=== PATIENT | male | born 1985 | race Caucasian/White ===

== ENCOUNTER 2020-03-22 13:27 | Emergency (ER) | payer OTHER ==
--- NOTE | 2020-03-22 13:39 | PDOC ---
Rapid Medical Evaluation Chief Complaint: Back Pain Time Seen by Provider: 03/22/20 13:37 Medical Evaluation: 03/22/20 13:37 I have performed a brief in-person examination on this patient. CC: acute on chronic back pain shooting down right leg. Denies red flag symptoms. PE: No focal findings. Orders: Toradol Patient will proceed to ED for further evaluation. Discharge Disposition - Diagnosis Back pain - Referrals - Patient Instructions - Post Discharge Activity
[2020-03-22 13:41] VITALS: BP 128/79; PULSE 71; TEMP 98.4; BMI 25.5
[2020-03-22] MEDS ORDERED: LIDOCAINE 5% TOPICAL PATCH TP ONE (14:10)
[2020-03-22] MEDS ORDERED: KETOROLAC TROMETHAMINE 30 MG/1 ML VIAL IM ONE (14:10)
[2020-03-22] MEDS ORDERED: METHOCARBAMOL 500 MG TABLET PO ONE (14:10)
--- NOTE | 2020-03-22 14:22 | PDOC ---
History of Present Illness - General Chief Complaint: Back Pain Stated Complaint: BACK PAIN Time Seen by Provider: 03/22/20 13:37 History Source: Patient Exam Limitations: Clinical Condition - History of Present Illness Initial Comments: 03/22/20 14:18 Patient with past medical history of chronic low back pain being managed by [id number] pain meds for a few years now present with complaint of worsening right lower back pain and left lower back pain for the past week. 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 Patient reported intermittent pain radiating to back of back leg. Denies saddle paresthesia, urinary or fecal incontinence. Denies urinary frequency, dysuria or burning urination. Patient has not taken anything today for symptoms. Denies any other symptoms Occurred: reports: last week Severity: reports: moderate Pain Location: reports: back Past History - Medical History Allergies/Adverse Reactions: Allergies Allergy/AdvReac Type Severity Reaction Status Date / Time No Known Allergies Allergy Verified 03/22/20 13:40 Home Medications: Ambulatory Orders Lidocaine 5% Patch [Lidoderm -] 1 patch TP DAILY #30 patch 03/22/20 Methocarbamol [Robaxin -] 500 mg PO BID PRN #14 tablet 03/22/20 Methylprednisolone [Medrol Dose Faisal] 4 mg PO ASDIR #21 tablet 03/22/20 - Psycho-Social/Smoking History Smoking History: Never smoked Have you smoked in the past 12 months: No Information on smoking cessation initiated: No - Substance Abuse Hx (Audit-C & DAST Scrn) How often the patient has a drink containing alcohol: Never Score: In Men: 4 or > Positive; In Women: 3 or > Positive: 0 Screen Result (Pos requires Nsg. Audit-10AR): Negative In the last yr the pt used illegal drug/Rx for NonMed reason: No Score: Yes response is considered Positive: 0 Screen Result (Positive result requires Nsg. DAST-10): Negative Review of Systems - Review of Systems Able to Perform ROS?: Yes Is the patient limited Lao proficient: No Constitutional: No: Chills, Fever, Malaise HEENTM: No: Symptoms Reported, See HPI, Eye Pain, Blurred Vision, Tearing, Recent change in vision, Double Vision, Cataracts, Ear Pain, Ocular Prothesis, Ear Discharge, Nose Pain, Nose Congestion, Tinnitus, Nose Bleeding, Hearing Loss, Throat Pain, Throat Swelling, Mouth Pain, Dental Problems, Difficulty Swallowing, Mouth Swelling, Other Respiratory: No: Symptoms reported, See HPI, Cough, Orthopnea, Shortness of Breath, SOB with Exertion, SOB at Rest, Stridor, Wheezing, Productive cough, Hemoptysis, Other Cardiac (ROS): No: Symptoms Reported, See HPI, Chest Pain, Edema, Irregular Heart Rate, Lightheadedness, Palpitations, Syncope, Chest Tightness, Other ABD/GI: No: Symptoms Reported, Nausea, Vomiting : No: Symptoms Reported, Burning, Frequency, Pain, Urgency, Testicular Mass, Testicular Swelling, Testicular Pain, Other Musculoskeletal: Yes: Symptoms Reported, See HPI, Back Pain Integumentary: No: Symptoms Reported Neurological: No: Symptoms reported, Headache, Dizziness All Other Systems: Reviewed and Negative *Physical Exam - Vital Signs Last Vital Signs Temp Pulse Resp BP Pulse Ox 98.4 F 71 15 128/79 97 03/22/20 13:37 03/22/20 13:37 03/22/20 13:37 03/22/20 13:37 03/22/20 13:37 - Physical Exam 03/22/20 14:22 GENERAL: Well developed, well nourished. Awake and alert. No acute distress. CARDIOVASCULAR: Regular rate and rhythm. No murmurs, rubs, or gallops. PULMONARY: No evidence of respiratory distress. Lungs clear to auscultation bilaterally. No wheezing, rales or rhonchi. ABDOMINAL: Soft. Non-tender. Non-distended. No rebound or guarding. No organomegaly. Normoactive bowel sounds MUSCULOSKELETAL : mild tenderness to right paravertebral muscle of lumbosacral spine of L4-S1. No midline tenderness. Increased pain to right lower back with rotation of the hip to the left. Negative straight leg test. SKIN: Warm and dry. Normal capillary refill. No rashes. No jaundice. NEUROLOGICAL: Alert, awake, appropriate. No motor deficits in the lower extremities. Gait is normal without ataxia. PSYCHIATRIC: Cooperative. Good eye contact. Appropriate mood and affect. General Appearance: Yes: Nourished, Appropriately Dressed. No: Apparent Distress ED Treatment Course - RADIOLOGY Radiology Studies Ordered: Category Date Time Status SPINE-LUMBAR SACRAL [RAD] Stat Radiology 10/05/20 14:10 Ordered Medical Decision Making - Medical Decision Making 03/22/20 14:19 Patient with past medical history of chronic low back pain being managed by [id number] pain meds for a few years now present with complaint of worsening right lower back pain and left lower back pain for the past week. 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 Patient reported intermittent pain radiating to back of back leg. Denies saddle paresthesia, urinary or fecal incontinence. Denies urinary frequency, dysuria or burning urination. Patient has not taken anything today for symptoms. Denies any other symptoms Exam significant for mild tenderness to right paravertebral muscle of lumbosacral spine of L4-S1. No midline tenderness. Increased pain to right lower back with rotation of the hip to the left. Negative straight leg test. Patient in no acute distress. Symptoms likely low back strain. X-ray of lumbosacral ordered to rule out acute spine abnormality. Treat based on imaging results 03/22/20 14:50 X-ray of lumbosacral spine shows straightening of the spine consistent with spasm. Patient stable for discharge on Medrol pack inflammatory effect and Robaxin for spasm and lidocaine patch with orthopedic neurosurgery follow-up Discharge - Discharge Information Problems reviewed: Yes Clinical Impression/Diagnosis: Back pain Qualifiers: Back pain location: low back pain Chronicity: chronic Back pain laterality: bilateral Sciatica presence: with sciatica Sciatica laterality: sciatica of ri ght side Qualified Code(s): M54.41 - Lumbago with sciatica, right side Condition: Stable Disposition: HOME - Admission No - Additional Discharge Information Prescriptions: Lidocaine 5% Patch [Lidoderm -] 1 patch TP DAILY #30 patch Methylprednisolone [Medrol Dose Faisal] 4 mg PO ASDIR #21 tablet Methocarbamol [Robaxin -] 500 mg PO BID PRN #14 tablet PRN Reason: Back Pain - Follow up/Referral Referrals: Behzad Maciel MD, [facility] [Staff Physician] - Jos Hannon MD [Staff Physician] - - Patient Discharge Instructions Patient Printed Discharge Instructions: DI for Back Pain With Sciatica Additional Instructions: X-ray of your lower back shows straightening of the spine consistent with muscle spasm. Take prescribed medication as prescribed for pain and spasm. Apply heat to lower back as needed for pain. Follow-up referred orthopedic account development specialist if no improvement in 3 days - Post Discharge Activity
[2020-03-22] MEDS ORDERED: KETOROLAC TROMETHAMINE 30 MG/1 ML VIAL ONE (14:23)
[2020-03-22] MEDS ORDERED: METHOCARBAMOL 500 MG TABLET ONE (14:23)
[2020-03-22] MEDS ORDERED: LIDOCAINE 5% TOPICAL PATCH ONE (14:23)
== END 2020-03-22 14:47 | disposition home or self-care (01) ==
LOC: JERFT 13:27
PROC: 3E0233Z Introduction of Anti-inflammatory into Muscle, Percutaneous Approach (ICD-10-PCS; principal; 2020-03-22)
DX: M54.41 Lumbago with sciatica, right side (principal)
CPT/HCPCS: 72100-TC-FY; 99284-25